=== PATIENT | female | born 1940 | race Caucasian/White ===

== ENCOUNTER 2017-06-02 11:47 | Inpatient (IN) | payer MEDICARE ==
[~2017-06-02] VITALS: Ht 167.6 cm; Wt 81.6 kg
[2017-06-02] MEDS ORDERED: normal saline 1000ML IV soln IV ONE (12:10)
[2017-06-02 12:49] LABS: BASOPHILS % (AUTO) 0.1 % (0-1); EOSINOPHILS % (AUTO) 0 % (0-6); HEMATOCRIT 40.3 % (35.0-45.0); MEAN CORPUSCULAR HEMOGLOBIN 29.9 PG (27.0-31.0); MEAN CORPUSCULAR HGB CONC 34.8 % (33.0-36.5); MEAN PLATELET VOLUME 8.4 FL (7.4-10.4); MONOCYTES # (AUTO) 1.1 X10'3 (0-0.9); MONOCYTES % (AUTO) 7.1 % (2-12); NEUTROPHILS # (AUTO) 12.7 X10'3 (1.8-7.7); NEUTROPHILS % (AUTO) 85.8 % (42-75); PLATELET COUNT 194 X10'3 (140-440); RED BLOOD COUNT 4.69 X10'6 (4.20-5.60); RED CELL DISTRIBUTION WIDTH 13.6 % (11.5-14.5); WHITE BLOOD COUNT 14.9 X10'3 (4.5-11.0)
[2017-06-02 12:54] LABS: INR 1.1 INR; PARTIAL THROMBOPLASTIN TIME 31 SECONDS (22-32)
[2017-06-02 13:02] LABS: ALANINE AMINOTRANSFERASE 23 U/L (12-78); ALBUMIN 3.4 G/DL (3.4-5.0); ALBUMIN/GLOBULIN RATIO 0.9 (1.1-1.5); ALKALINE PHOSPHATASE 78 IU/L (46-116); ANION GAP 14 (8-16); ASPARTATE AMINO TRANSFERASE 23 U/L (10-37); BILIRUBIN,TOTAL 1.2 MG/DL (0.1-1.0); BLOOD UREA NITROGEN 25 MG/DL (7-18); BUN/CREATININE RATIO 16.6 (6.6-38.0); CALCIUM 8.5 MG/DL (8.5-10.1); CHLORIDE 101 MMOL/L (99-107); CREATININE 1.51 MG/DL (0.40-0.90); GLUCOSE 128 MG/DL (70-104); POTASSIUM 3.2 MMOL/L (3.5-5.1); SODIUM 140 MMOL/L (135-145); TOTAL CARBON DIOXIDE 25.4 MMOL/L (24-32); TOTAL PROTEIN 7.2 G/DL (6.4-8.2); eGFR 34 ML/MIN
[2017-06-02 13:03] LABS: ETHANOL < 0.010 GM/DL (0.0-0.010)
[2017-06-02 14:14] LABS: URINE AMPHETAMINE SCREEN NEGATIVE (Neg); URINE BARBITUATE SCREEN NEGATIVE (Neg); URINE BENZODIAZEPINES SCREEN NEGATIVE (Neg); URINE CANNABINOID SCREEN NEGATIVE (Neg); URINE COCAINE SCREEN NEGATIVE (Neg); URINE METHADONE SCREEN NEGATIVE (Neg); URINE OPIATE SCREEN NEGATIVE (Neg); URINE PHENCYCLIDINE SCREEN NEGATIVE (Neg)
[2017-06-02 14:22] LABS: CLARITY,URINE Turbid (Clear); COLOR,URINE Dark Yellow (Yellow); GLUCOSE, URINE Negative (Neg); KETONES,URINE Trace mg/dl (Neg); LEUKOCYTE ESTERASE ,URINE Large (Neg); NITRITES, URINE Negative (Neg); OCCULT BLOOD,URINE Moderate (Neg); PROTEIN,URINE 300 mg/dl (Neg)
[2017-06-02 14:25] LABS: UA COLLECTION TYPE STRAIGHT CATH
[2017-06-02 15:00] LABS: WBC,URINE TNTC /HPF (0-4)
[2017-06-02] MEDS ORDERED: cefTRIAXone 1g/NS 100ml IVPB 100 ML IV ONE (15:00)
[2017-06-02 15:01] LABS: BACTERIA,URINE 3+ /HPF (Neg); MUCUS STRANDS MODERATE /LPF (Neg); SQUAMOUS EPITHELIAL CELL,UR MODERATE /LPF (FEW)
[2017-06-02 15:02] LABS: HYALINE CASTS 0-3 /LPF (NEGATIVE)
[2017-06-02 15:16] LABS: TOTAL CELLS COUNTED 100
[2017-06-02 15:18] LABS: PLATELET ESTIMATE NORMAL; TOXIC GRANULATION 1+; TOXIC VACUOLATION FEW
[2017-06-02] MEDS ORDERED: acetaminophen 325mg tablet PO ONE (15:20)
[2017-06-02] MEDS ORDERED: potassium Cl 20 mEq SR tablet PO PRN ×2 (15:20)
[2017-06-02] MEDS ORDERED: potassium Cl 40MEQ/NS 500ml 500 ML IV PRN (15:20)
[2017-06-02] MEDS ORDERED: mag hydrox/Alum hydrox/simeth 30ml oral suspension PO PRN (16:30)
[2017-06-02] MEDS ORDERED: ondansetron/PF 4mg/2ml inj IV PRN (16:30)
[2017-06-02] MEDS ORDERED: magnesium hydroxide 30ml (MOM) UD suspension PO PRN (16:30)
[2017-06-02] MEDS ORDERED: bisacodyl 10mg suppository rectal RC PRN (16:30)
[2017-06-02] MEDS ORDERED: HYDROcodone/acetaminophen 10/325mg tab PO PRN (16:30)
[2017-06-02] MEDS ORDERED: acetaminophen 325mg tablet PO PRN ×2 (16:30)
[2017-06-02] MEDS ORDERED: HYDROcodone/acetaminophen 5mg/325mg tablet PO PRN (16:30)
[2017-06-02] MEDS ORDERED: morphine 4 MG/ML inj SYRINge IV PRN ×2 (16:30)
[2017-06-02] MEDS: normal saline 1000ml 1,000 ML IV SCH (16:51)
[2017-06-02] MEDS: docusate sod 100mg capsule PO SCH (20:00)
[2017-06-02] MEDS ORDERED: temazepam 15mg capsule PO PRN (21:00)
[2017-06-02] MEDS ORDERED: UNABLE TO OBTAIN (21:09)
[2017-06-03] VITALS (27 sets, daily range): BP systolic 112–158; BP diastolic 54–82
[2017-06-03] MEDS: normal saline 1000ml 1,000 ML IV SCH ×3 (02:32→23:05)
[2017-06-03 05:56] LABS: BASOPHILS % (AUTO) 0.2 % (0-1); EOSINOPHILS % (AUTO) 0.3 % (0-6); HEMOGLOBIN 12.5 g/dl (12.0-16.0); LYMPHOCYTES % (AUTO) 9.9 % (21-51); MEAN CORPUSCULAR HEMOGLOBIN 29.7 PG (27.0-31.0); MEAN CORPUSCULAR HGB CONC 34.8 % (33.0-36.5); MEAN CORPUSCULAR VOLUME 85.4 FL (78-98); MEAN PLATELET VOLUME 9.4 FL (7.4-10.4); MONOCYTES % (AUTO) 9.5 % (2-12); NEUTROPHILS # (AUTO) 8.3 X10'3 (1.8-7.7); NEUTROPHILS % (AUTO) 80.1 % (42-75); PLATELET COUNT 121 X10'3 (140-440); RED BLOOD COUNT 4.21 X10'6 (4.20-5.60); RED CELL DISTRIBUTION WIDTH 13.7 % (11.5-14.5); WHITE BLOOD COUNT 10.4 X10'3 (4.5-11.0)
[2017-06-03 05:58] LABS: ALBUMIN 2.7 G/DL (3.4-5.0); ANION GAP 14 (8-16); CALCIUM 7.4 MG/DL (8.5-10.1); CHLORIDE 109 MMOL/L (99-107); CREATININE 1.38 MG/DL (0.40-0.90); GLUCOSE 107 MG/DL (70-104); MAGNESIUM 1.9 MG/DL (1.5-2.4); SODIUM 144 MMOL/L (135-145); TOTAL CARBON DIOXIDE 20.9 MMOL/L (24-32); eGFR 37 ML/MIN
[2017-06-03 06:03] LABS: BLOOD UREA NITROGEN 22 MG/DL (7-18); BUN/CREATININE RATIO 15.9 (6.6-38.0)
[2017-06-03] MEDS: docusate sod 100mg capsule PO SCH ×2 (07:14→20:01)
[2017-06-03] MEDS: cefTRIAXone 1g/NS 100ml IVPB 100 ML IV SCH (07:48)
[2017-06-03] MEDS: potassium Cl 40MEQ/NS 500ml 500 ML IV PRN ×2 (08:57→13:55)
[2017-06-03] MEDS ORDERED: ringers solution, lacted 1,000 ML IV SCH (10:38)
[2017-06-03] MEDS ORDERED: fentaNYL/PF 50MCG/1 ML 2ML syringe IV PRN ×2 (10:40)
[2017-06-03] MEDS ORDERED: labetalol 5mg/ml 20ml inj. IV PRN (10:40)
[2017-06-03] MEDS ORDERED: hydrALAZINE 20mg/ml inj. IV PRN (10:40)
[2017-06-03] MEDS ORDERED: morphine 2 MG/ML inj. syringe IV PRN ×2 (10:40)
[2017-06-03] MEDS ORDERED: ondansetron/PF 4mg/2ml inj IV PRN (10:40)
[2017-06-03] MEDS ORDERED: iohexol 300 MG/1 ML 50ml polymer ONE (11:51)
[2017-06-03] MEDS ORDERED: sevoflurane 250ml liquid IH ONE (12:05)
[2017-06-03] MEDS ORDERED: fentaNYL/PF 50MCG/1 ML 2ML syringe ONE (12:13)
[2017-06-03] MEDS ORDERED: midazolam 2 mg/2 ml injection ONE (12:13)
[2017-06-03] MEDS ORDERED: dexamethasone sod phosphate 4mg/ml inj. ONE (12:14)
[2017-06-03] MEDS ORDERED: propofol inj 20 ML IV ONE (12:14)
[2017-06-03] MEDS ORDERED: LIDOcaine 1%/PF (10mg/ml) 5ml vial ONE (12:14)
[2017-06-03] MEDS ORDERED: ondansetron/PF 4mg/2ml inj ONE (12:14)
[2017-06-03] MEDS: lactobacillus rhamnosus 10,000 MMU CELLS/CAPSULE PO SCH (20:01)
[2017-06-04] VITALS (8 sets, daily range): BP systolic 150–190; BP diastolic 74–96
[2017-06-04 05:25] LABS: BASOPHILS % (AUTO) 0.3 % (0-1); EOSINOPHILS % (AUTO) 0 % (0-6); HEMATOCRIT 37.8 % (35.0-45.0); HEMOGLOBIN 12.9 g/dl (12.0-16.0); LYMPHOCYTES # (AUTO) 0.8 X10'3 (1.1-4.8); LYMPHOCYTES % (AUTO) 11.3 % (21-51); MEAN CORPUSCULAR HEMOGLOBIN 29.4 PG (27.0-31.0); MEAN CORPUSCULAR HGB CONC 34.3 % (33.0-36.5); MEAN CORPUSCULAR VOLUME 85.9 FL (78-98); MEAN PLATELET VOLUME 9.1 FL (7.4-10.4); MONOCYTES # (AUTO) 0.3 X10'3 (0-0.9); MONOCYTES % (AUTO) 4.7 % (2-12); NEUTROPHILS # (AUTO) 6.1 X10'3 (1.8-7.7); NEUTROPHILS % (AUTO) 83.7 % (42-75); PLATELET COUNT 183 X10'3 (140-440); RED CELL DISTRIBUTION WIDTH 13.7 % (11.5-14.5); WHITE BLOOD COUNT 7.3 X10'3 (4.5-11.0)
[2017-06-04 05:47] LABS: ALBUMIN 2.7 G/DL (3.4-5.0); ANION GAP 10 (8-16); BLOOD UREA NITROGEN 15 MG/DL (7-18); BUN/CREATININE RATIO 16.1 (6.6-38.0); CALCIUM 8.3 MG/DL (8.5-10.1); CHLORIDE 111 MMOL/L (99-107); CREATININE 0.93 MG/DL (0.40-0.90); GLUCOSE 226 MG/DL (70-104); MAGNESIUM 2.1 MG/DL (1.5-2.4); POTASSIUM 3.8 MMOL/L (3.5-5.1); SODIUM 145 MMOL/L (135-145); TOTAL CARBON DIOXIDE 24.2 MMOL/L (24-32); eGFR 59 ML/MIN
[2017-06-04] MEDS: cefTRIAXone 1g/NS 100ml IVPB 100 ML IV SCH (08:00)
[2017-06-04] MEDS: docusate sod 100mg capsule PO SCH ×2 (08:00→19:39)
[2017-06-04] MEDS: lactobacillus rhamnosus 10,000 MMU CELLS/CAPSULE PO SCH ×2 (08:00→19:40)
[2017-06-04] MEDS: normal saline 1000ml 1,000 ML IV SCH ×3 (09:20→21:17)
[2017-06-04] MEDS ORDERED: pneumococcal 23-VAL P-sac vacc 25 mcg/0.5ml vial IMVAC ONE (10:00)
[2017-06-04] MEDS ORDERED: CARV-50 PO (15:51)
[2017-06-04] MEDS ORDERED: LOSA25TA21 PO (15:52)
[2017-06-04] MEDS ORDERED: ROSU10TA PO (15:54)
[2017-06-04] MEDS ORDERED: OXYB5TAB11 PO (15:56)
[2017-06-05] VITALS (9 sets, daily range): BP systolic 139–202; BP diastolic 59–100
[2017-06-05 05:24] LABS: BASOPHILS # (AUTO) 0.1 X10'3 (0-0.2); BASOPHILS % (AUTO) 0.3 % (0-1); EOSINOPHILS # (AUTO) 0.1 X10'3 (0-0.9); EOSINOPHILS % (AUTO) 0.8 % (0-6); HEMATOCRIT 34.8 % (35.0-45.0); HEMOGLOBIN 11.8 g/dl (12.0-16.0); LYMPHOCYTES # (AUTO) 2.1 X10'3 (1.1-4.8); LYMPHOCYTES % (AUTO) 13.6 % (21-51); MEAN CORPUSCULAR HEMOGLOBIN 29.3 PG (27.0-31.0); MEAN CORPUSCULAR HGB CONC 33.9 % (33.0-36.5); MEAN CORPUSCULAR VOLUME 86.3 FL (78-98); MEAN PLATELET VOLUME 9.4 FL (7.4-10.4); MONOCYTES # (AUTO) 1.2 X10'3 (0-0.9); MONOCYTES % (AUTO) 7.4 % (2-12); NEUTROPHILS # (AUTO) 12.3 X10'3 (1.8-7.7); NEUTROPHILS % (AUTO) 77.9 % (42-75); PLATELET COUNT 195 X10'3 (140-440); RED BLOOD COUNT 4.03 X10'6 (4.20-5.60); RED CELL DISTRIBUTION WIDTH 13.8 % (11.5-14.5); WHITE BLOOD COUNT 15.8 X10'3 (4.5-11.0)
[2017-06-05 05:48] LABS: ALBUMIN 2.5 G/DL (3.4-5.0); ANION GAP 10 (8-16); BLOOD UREA NITROGEN 12 MG/DL (7-18); BUN/CREATININE RATIO 14.5 (6.6-38.0); CALCIUM 7.9 MG/DL (8.5-10.1); CHLORIDE 109 MMOL/L (99-107); CREATININE 0.83 MG/DL (0.40-0.90); GLUCOSE 120 MG/DL (70-104); MAGNESIUM 1.6 MG/DL (1.5-2.4); SODIUM 145 MMOL/L (135-145); eGFR 67 ML/MIN
[2017-06-05] MEDS: cefTRIAXone 1g/NS 100ml IVPB 100 ML IV SCH (07:38)
[2017-06-05] MEDS: docusate sod 100mg capsule PO SCH ×2 (07:38→19:03)
[2017-06-05] MEDS: lactobacillus rhamnosus 10,000 MMU CELLS/CAPSULE PO SCH ×2 (07:38→19:03)
[2017-06-05] MEDS: losartan 25mg tablet PO SCH (07:39)
[2017-06-05] MEDS: carVEDilol 12.5mg tablet PO SCH ×2 (07:39→19:03)
[2017-06-05] MEDS: normal saline 1000ml 1,000 ML IV SCH (07:39)
[2017-06-05] MEDS: potassium Cl 40MEQ/NS 500ml 500 ML IV PRN ×2 (08:14→14:34)
[2017-06-05] MEDS: hydrALAZINE 20mg/ml inj. IV PRN ×2 (12:06→20:00)
[2017-06-06] VITALS: BP 116/93
[2017-06-06] MEDS: normal saline 1000ml 1,000 ML IV SCH ×2 (00:29→01:51)
[2017-06-06] MEDS: K and/or MAG REPLACEMENT MC SCH ×2 (01:30→07:48)
[2017-06-06] MEDS ORDERED: potassium Cl 20 mEq SR tablet PO PRN ×2 (01:30)
[2017-06-06] MEDS ORDERED: potassium Cl 40MEQ/NS 500ml 500 ML IV PRN ×2 (01:30)
[2017-06-06 04:02] VITALS: BP 156/63
[2017-06-06 04:49] LABS: BASOPHILS # (AUTO) 0.1 X10'3 (0-0.2); BASOPHILS % (AUTO) 0.6 % (0-1); EOSINOPHILS # (AUTO) 0.1 X10'3 (0-0.9); EOSINOPHILS % (AUTO) 1.4 % (0-6); HEMATOCRIT 36.4 % (35.0-45.0); HEMOGLOBIN 12.6 g/dl (12.0-16.0); LYMPHOCYTES # (AUTO) 1.6 X10'3 (1.1-4.8); LYMPHOCYTES % (AUTO) 15.6 % (21-51); MEAN CORPUSCULAR HEMOGLOBIN 29.4 PG (27.0-31.0); MEAN CORPUSCULAR HGB CONC 34.6 % (33.0-36.5); MEAN CORPUSCULAR VOLUME 85.2 FL (78-98); MEAN PLATELET VOLUME 9.7 FL (7.4-10.4); MONOCYTES # (AUTO) 1.1 X10'3 (0-0.9); MONOCYTES % (AUTO) 10.8 % (2-12); NEUTROPHILS # (AUTO) 7.4 X10'3 (1.8-7.7); NEUTROPHILS % (AUTO) 71.6 % (42-75); PLATELET COUNT 215 X10'3 (140-440); RED BLOOD COUNT 4.27 X10'6 (4.20-5.60); RED CELL DISTRIBUTION WIDTH 13.9 % (11.5-14.5); WHITE BLOOD COUNT 10.3 X10'3 (4.5-11.0)
[2017-06-06 05:12] LABS: ALBUMIN 2.6 G/DL (3.4-5.0); ANION GAP 8 (8-16); BLOOD UREA NITROGEN 8 MG/DL (7-18); BUN/CREATININE RATIO 10.3 (6.6-38.0); CALCIUM 8.2 MG/DL (8.5-10.1); CHLORIDE 106 MMOL/L (99-107); CREATININE 0.78 MG/DL (0.40-0.90); GLUCOSE 122 MG/DL (70-104); MAGNESIUM 1.5 MG/DL (1.5-2.4); POTASSIUM 3.5 MMOL/L (3.5-5.1); SODIUM 143 MMOL/L (135-145); TOTAL CARBON DIOXIDE 29.5 MMOL/L (24-32); eGFR 72 ML/MIN
[2017-06-06 07:40] VITALS: BP 178/80
[2017-06-06] MEDS: carVEDilol 12.5mg tablet PO SCH (07:54)
[2017-06-06] MEDS: cefTRIAXone 1g/NS 100ml IVPB 100 ML IV SCH (07:54)
[2017-06-06] MEDS: lactobacillus rhamnosus 10,000 MMU CELLS/CAPSULE PO SCH (07:54)
[2017-06-06] MEDS: losartan 25mg tablet PO SCH (07:54)
[2017-06-06] MEDS: docusate sod 100mg capsule PO SCH (07:54)
[2017-06-06 09:15] VITALS: BP 148/75
== END 2017-06-06 12:14 | disposition home or self-care (01) | DRG 872 ==
LOC: ER 11:49 → ED HOLD 16:29 → SUR 3N 23:42
PROVIDERS: ADMIT Family Medicine; ATTEND Family Medicine
PROC: 0T768DZ Dilation of Right Ureter with Intraluminal Device, Via Natural or Artificial Opening Endoscopic (ICD-10-PCS; principal; 2017-06-03 12:05)
DX: A41.9 Sepsis, unspecified organism (principal); N17.9 Acute kidney failure, unspecified; D69.6 Thrombocytopenia, unspecified; E86.0 Dehydration; N12 Tubulo-interstitial nephritis, not specified as acute or chronic; N13.2 Hydronephrosis with renal and ureteral calculous obstruction; R65.20 Severe sepsis without septic shock; B96.89 Other specified bacterial agents as the cause of diseases classified elsewhere; E87.6 Hypokalemia; I10 Essential (primary) hypertension; Z96.653 Presence of artificial knee joint, bilateral; Z60.2 Problems related to living alone; Z87.442 Personal history of urinary calculi; Z82.49 Family history of ischemic heart disease and other diseases of the circulatory system
CPT/HCPCS: 36415; 70450; 71045; 74176; 76000; 80048; 80053; 80305; 80320; 81001; 83605; 83735; 84132; 84145; 84484; 85025; 85610; 85730; 87040; 87070; 87077; 87088; 87186; 90732; 93005; 96361; 96365; 99285; A4402; C1758; C1769; C2625; J0360; J0696; J1100; J2001; J2250; J2405; J2704; J3010; J3480; J7030; J7120; Q9967